=== PATIENT | male | born 1975 | race Caucasian/White ===

== ENCOUNTER 2020-07-03 16:22 | Emergency (ER) | payer OTHER ==
[~2020-07-03] VITALS: Ht 188 cm; Wt 65.9 kg
--- NOTE | 2020-07-03 17:10 | NUR ---
[facility] officer at bedside to take statement from pt.
[2020-07-03 17:15] VITALS: BP 135/87
--- NOTE | 2020-07-03 17:30 | NUR ---
Pt self-dc'd his c-collar and is standing in room [facility] it [facility]. Dr. Dominguez notified and at bedside to assess pt.
== END 2020-07-03 17:47 | disposition home or self-care (01) ==
LOC: ER 16:22
DX: S80.212A Abrasion, left knee, initial encounter (principal); Z72.89 Other problems related to lifestyle; V87.7XXA Person injured in collision between other specified motor vehicles (traffic), initial encounter; Y93.89 Activity, other specified; Y92.89 Other specified places as the place of occurrence of the external cause; Y99.8 Other external cause status
CPT/HCPCS: 99283

== ENCOUNTER 2020-07-04 16:46 | Emergency (ER) | payer MEDICAID, OTHER ==
[~2020-07-04] VITALS: Ht 188 cm; Wt 61.9 kg
[2020-07-04 17:04] VITALS: BP 108/82
[2020-07-04] MEDS ORDERED: ibuprofen tablet 400 MG TABLET PO ONE (18:30)
--- NOTE | 2020-07-04 18:51 | NUR ---
per pharmacy "Dr Hayes would like the [employer] checked that was placed today at [facility], no site documented.
== END 2020-07-04 18:53 | disposition home or self-care (01) ==
LOC: ER 16:47
DX: S20.219A Contusion of unspecified front wall of thorax, initial encounter (principal); R07.89 Other chest pain; M25.561 Pain in right knee; M25.571 Pain in right ankle and joints of right foot; F17.200 Nicotine dependence, unspecified, uncomplicated; V87.7XXA Person injured in collision between other specified motor vehicles (traffic), initial encounter; Y93.89 Activity, other specified; Y92.89 Other specified places as the place of occurrence of the external cause; Y99.8 Other external cause status
CPT/HCPCS: 71045; 93005; 99283